=== PATIENT | female | born 2000 | race Caucasian/White ===

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

== ENCOUNTER 2020-11-13 20:44 | Emergency (ER) | payer OTHER, MEDICAID ==
[~2020-11-13] VITALS: Ht 160 cm; Wt 44.5 kg
[~2020-11-13 20:44] MED LIST: ACCUNEB SO1.25 MG/1 INH; DULERA 100 MCG/13 GM; FLONASE 0.05%50 MCG NASAL; PROAIR HFA8.5 GM INH; SINGULAIR 10 MG10 M1 PO; TAMIFLU30 MG PO
[2020-11-13 20:55] VITALS: BP 115/87
--- NOTE | 2020-11-14 10:52 | EKG ---
[place] [address] ELECTROCARDIOGRAM REPORT Name: PURA NAIK Room: [facility]#: [id number] Admission: 11/13/20 Attend Phys: Discharge: 11/13/20 Date of : [birth year] Date of Service: 11/13/202053 Report #: [id number] THIS REPORT FOR: //name// [facility] ED Test Date: 2020-11-13 Test Time: 20:54:18 Pat Name: PURA NAIK Department: Room: Gender: F Engineering Lecturer: MS : 2000 Requested By: Carlotta Aleman Order Number: [id number] MD: Rayshawn Katz Measurements Intervals [place] Rate: 108 P: 77 [place]: 116 QRS: 86 QRSD: 92 T: -62 QT: 314 QTc: 421 Interpretive Statements Sinus tachycardia Repol abnrm suggests ischemia, inferior leads Baseline wander in lead(s) I,II,III,aVR,aVF,V3 No previous ECG available for comparison Electronically Signed On 11-14-2020 10:52:37 CDT by Rayshawn Katz [email or web address] <ELECTRONICALLY SIGNED> By: Rayshawn Katz MD, [facility] 11/14/20 [id number] Rayshawn Katz MD, [facility] /EPI
== END 2020-11-13 22:35 | disposition left against medical advice (07) ==
LOC: M.ERS 20:44
DX: R06.02 Shortness of breath (principal); R07.89 Other chest pain; R00.0 Tachycardia, unspecified; Z53.21 Procedure and treatment not carried out due to patient leaving prior to being seen by health care provider